=== PATIENT | male | born 1970 | race Caucasian/White ===

== ENCOUNTER 2019-05-04 14:17 | Inpatient (IN) | payer OTHER ==
[~2019-05-04] VITALS: Ht 172.7 cm; Wt 83.5 kg
[~2019-05-04 14:17] MED LIST: GLIPIZIDE XL2.5 M1 PO; JANUVIA50 M1 PO; LANTI SQ; METFORMIN HYD1000 M2 PO; ZES10 PO
[2019-05-04 15:17] LABS: UA SPECIFIC GRAVITY 1.025 (1.005-1.035); microscopic required? YES; urine erythrocyte 1+ (NEGATIVE)
[2019-05-04 15:21] LABS: BASOPHIL % 0.8 % (0-2); PLATELET COUNT 199 x10^3mcL (130-400)
[2019-05-04 15:30] LABS: CALCIUM 9.5 mg/dL (8.5-10.1); CREATININE SERUM 2.1 mg/dL (0.7-1.3)
[2019-05-04 15:35] LABS: ALBUMIN 3.1 g/dL (3.4-5.0); BILIRUBIN TOTAL 0.62 mg/dL (0.20-1.00); TOTAL PROTEIN, SERUM 7.4 g/dL (6.4-8.2)
[2019-05-04 15:53] LABS: AMPHETAMINE QUAL UR NONE DETECTED (See below)
[2019-05-04 19:00] VITALS: BP 161/94
[2019-05-04 19:14] VITALS: BP 161/94
[2019-05-04 21:06] LABS: CALCIUM 9.3 mg/dL (8.5-10.1); CARBON DIOXIDE 12.2 mmol/L (21-32); CREATININE SERUM 1.9 mg/dL (0.7-1.3); MAGNESIUM 1.9 mg/dL (1.8-2.4); PHOSPHOROUS 3.6 mg/dL (2.5-4.9); POTASSIUM SERUM 4.1 mmol/L (3.5-5.1)
[2019-05-04 23:10] VITALS: BP 149/87
[2019-05-05 00:17] LABS: CALCIUM 8.6 mg/dL (8.5-10.1); CARBON DIOXIDE 17.3 mmol/L (21-32); CREATININE SERUM 1.9 mg/dL (0.7-1.3); MAGNESIUM 1.5 mg/dL (1.8-2.4); PHOSPHOROUS 3.2 mg/dL (2.5-4.9); POTASSIUM SERUM 4.2 mmol/L (3.5-5.1)
[2019-05-05 03:02] VITALS: BP 149/92
[2019-05-05 04:46] LABS: BASOPHIL % 0.5 % (0-2); PLATELET COUNT 174 x10^3mcL (130-400)
[2019-05-05 05:02] LABS: BILIRUBIN TOTAL 0.45 mg/dL (0.20-1.00); CALCIUM 8.3 mg/dL (8.5-10.1); CARBON DIOXIDE 18.8 mmol/L (21-32); CREATININE SERUM 1.7 mg/dL (0.7-1.3); POTASSIUM SERUM 3.9 mmol/L (3.5-5.1); TOTAL PROTEIN, SERUM 6.4 g/dL (6.4-8.2)
[2019-05-05 05:03] LABS: ALBUMIN 2.6 g/dL (3.4-5.0)
[2019-05-05 05:15] LABS: MAGNESIUM 1.5 mg/dL (1.8-2.4); PHOSPHOROUS 2.4 mg/dL (2.5-4.9)
[2019-05-05 08:00] VITALS: BP 102/72
[2019-05-05 09:25] LABS: CALCIUM 8.1 mg/dL (8.5-10.1); CARBON DIOXIDE 19.9 mmol/L (21-32); CREATININE SERUM 1.8 mg/dL (0.7-1.3); MAGNESIUM 1.4 mg/dL (1.8-2.4); PHOSPHOROUS 2.4 mg/dL (2.5-4.9); POTASSIUM SERUM 3.4 mmol/L (3.5-5.1)
[2019-05-05 12:00] VITALS: BP 101/70
[2019-05-05 12:32] VITALS: Ht 172.7 cm; Wt 83.5 kg
[2019-05-05 13:06] LABS: CALCIUM 8.1 mg/dL (8.5-10.1); CREATININE SERUM 1.7 mg/dL (0.7-1.3); MAGNESIUM 1.9 mg/dL (1.8-2.4); PHOSPHOROUS 2.4 mg/dL (2.5-4.9); POTASSIUM SERUM 3.4 mmol/L (3.5-5.1)
[2019-05-05 16:00] VITALS: BP 99/65
[2019-05-05 16:34] LABS: CARBON DIOXIDE 22.2 mmol/L (21-32); CREATININE SERUM 1.6 mg/dL (0.7-1.3); MAGNESIUM 2.1 mg/dL (1.8-2.4); PHOSPHOROUS 2.4 mg/dL (2.5-4.9); POTASSIUM SERUM 3.6 mmol/L (3.5-5.1)
[2019-05-05 17:29] LABS: CALCIUM 8.7 mg/dL (8.5-10.1)
[2019-05-06 01:01] VITALS: BP 126/80
[2019-05-06 04:24] VITALS: BP 137/78
[2019-05-06 08:28] LABS: BASOPHIL % 0.9 % (0-2); PLATELET COUNT 177 x10^3mcL (130-400); RED CELL DISTRIBUTION WIDTH 12.6 % (11.5-14.5)
[2019-05-06 08:31] LABS: BILIRUBIN TOTAL 0.4 mg/dL (0.20-1.00); CALCIUM 8.5 mg/dL (8.5-10.1); CARBON DIOXIDE 22.2 mmol/L (21-32); CREATININE SERUM 1.5 mg/dL (0.7-1.3); MAGNESIUM 2.1 mg/dL (1.8-2.4); PHOSPHOROUS 2.8 mg/dL (2.5-4.9); POTASSIUM SERUM 3.8 mmol/L (3.5-5.1); TOTAL PROTEIN, SERUM 6.2 g/dL (6.4-8.2)
[2019-05-06 08:32] LABS: ALBUMIN 2.6 g/dL (3.4-5.0)
[2019-05-06 11:49] VITALS: BP 138/86
[2019-05-06 16:19] VITALS: BP 154/104
[2019-05-06 20:49] VITALS: BP 169/99
[2019-05-06 23:53] VITALS: BP 141/92
[2019-05-07 05:58] VITALS: BP 173/101
[2019-05-07 06:30] VITALS: BP 148/93
[2019-05-07 07:28] LABS: BASOPHIL % 1.1 % (0-2); PLATELET COUNT 169 x10^3mcL (130-400)
[2019-05-07 07:42] VITALS: BP 183/108
[2019-05-07 09:34] LABS: ALKALINE PHOSPHATASE 69 U/L (46-116); ALT/SGPT 15 U/L (16-63); AST/SGOT 12 U/L (15-37); BILIRUBIN TOTAL 0.3 mg/dL (0.20-1.00); CALCIUM 8.4 mg/dL (8.5-10.1); CARBON DIOXIDE 23.7 mmol/L (21-32); CHLORIDE SERUM 109 mmol/L (98-107); CREATININE SERUM 1.3 mg/dL (0.7-1.3); GFR1 > 60 mL/min; GLUCOSE SERUM 147 mg/dL (74-106); LIPASE 414 IU/L (73-393); PHOSPHOROUS 3.7 mg/dL (2.5-4.9); POTASSIUM SERUM 3.7 mmol/L (3.5-5.1); SODIUM SERUM 143 mmol/L (136-145)
[2019-05-07 09:39] LABS: ALBUMIN 2.6 g/dL (3.4-5.0); TOTAL PROTEIN, SERUM 6.1 g/dL (6.4-8.2)
[2019-05-07] MEDS ORDERED: IBU400 M2 PO (10:20)
[2019-05-07] MEDS ORDERED: JANUVIA50 M1 PO (10:22)
[2019-05-07] MEDS ORDERED: LANTI SQ (10:22)
[2019-05-07] MEDS ORDERED: ZES10 PO (10:22)
[2019-05-07 11:33] VITALS: BP 159/105
[2019-05-07 12:45] VITALS: BP 156/72
== END 2019-05-07 13:15 | disposition home or self-care (01) | DRG 241 ==
LOC: ED 14:17 → IC 16:31 → DU 16:31 → ED 16:31 → DU 16:36 → IC 16:36 → DU 18:22 → IC 18:22 → DU 05-06 09:17
PROVIDERS: Emergency Medicine; Internal Medicine Gastroenterology; ADMIT Internal Medicine
PROC: 0DJ08ZZ Inspection of Upper Intestinal Tract, Via Natural or Artificial Opening Endoscopic (ICD-10-PCS; principal; 2019-05-06 12:15)
DX: K29.70 Gastritis, unspecified, without bleeding (principal); N17.0 Acute kidney failure with tubular necrosis; K85.20 Alcohol induced acute pancreatitis without necrosis or infection; E11.10 Type 2 diabetes mellitus with ketoacidosis without coma; E11.22 Type 2 diabetes mellitus with diabetic chronic kidney disease; N18.4 Chronic kidney disease, stage 4 (severe); I12.9 Hypertensive chronic kidney disease with stage 1 through stage 4 chronic kidney disease, or unspecified chronic kidney disease; F10.20 Alcohol dependence, uncomplicated; Y90.9 Presence of alcohol in blood, level not specified; E83.42 Hypomagnesemia; E83.39 Other disorders of phosphorus metabolism; E87.1 Hypo-osmolality and hyponatremia; E87.6 Hypokalemia; E87.8 Other disorders of electrolyte and fluid balance, not elsewhere classified; E86.0 Dehydration; E11.65 Type 2 diabetes mellitus with hyperglycemia; E44.1 Mild protein-calorie malnutrition; E78.5 Hyperlipidemia, unspecified; E78.00 Pure hypercholesterolemia, unspecified; Z68.28 Body mass index [BMI] 28.0-28.9, adult; Z79.84 Long term (current) use of oral hypoglycemic drugs; Z91.14 Patient's other noncompliance with medication regimen; Z91.19 Patient's noncompliance with other medical treatment and regimen
CPT/HCPCS: 36600; 43235; 82962; 97116-GP; C9113; G0378; G0480; J0360; J1200; J1610; J1815; J1885; J2060; J2250; J2270; J2310; J2405; J2543; J2765; J3010; J3475; J3490; J7030; Q0092